=== PATIENT | female | born 1950 | race Caucasian/White ===

== ENCOUNTER → 2016-10-29 | Outpatient (REF) | payer OTHER | LOC: M LAB REF 12:24 | PROVIDERS: ATTEND Internal Medicine Medical Oncology | DX: C54.1 Malignant neoplasm of endometrium (principal) ==

== ENCOUNTER → 2016-12-27 | Outpatient (REF) | payer OTHER | LOC: M LAB REF 12:15 | PROVIDERS: ATTEND Internal Medicine Medical Oncology | DX: C54.1 Malignant neoplasm of endometrium (principal) ==

== ENCOUNTER → 2017-02-23 | Outpatient (CLI) | payer OTHER ==
--- NOTE | 2017-02-23 14:51 | REP ---
PET/CT: HISTORY: Restaging endometrial carcinoma. Lung metastasis status post left thoracotomy for metastasectomy. She is also status post chemotherapy. COMPARISONS: Comparison is made with PET/CT done at [facility] dated September 22, 2016. TECHNIQUE: 57 minutes following the intravenous injection of a 9.5 mCi dose of F-18 FDG, three-dimensional PET scintigraphy is acquired from the skull base to the proximal thighs. Triplanar noncontrast CT scanning is acquired through the same anatomic range for attenuation correction, and image registration with scan parameters optimized to minimize radiation exposure to the patient. PET scintigraphy and CT datasets were fused and displayed on a workstation with multiplanar and projection display capability. PET/CT FINDINGS: There is a post lung resection suture line in the left lower lobe and some left basilar fibroatelectatic changes are seen. There is no abnormal hypermetabolic uptake within the chest. There is no other nodular opacity in the lung parenchyma. No pleural effusion is seen. No hilar or mediastinal hypermetabolic uptake or evidence of adenopathy is seen. Head and neck soft tissues are unremarkable. In the abdomen and pelvis, there is normal hepatic, splenic, gastrointestinal, and genitourinary FDG accumulation. No abnormal hypermetabolic uptake is seen. IMPRESSION: Negative PET CT study. Postoperative changes left lower lobe. No abnormal hypermetabolic uptake is seen. Signed by Jay Liz MD 02/23/2017 03:50 P
== END ==
LOC: M PLARAD 07:36
PROVIDERS: ATTEND Internal Medicine Medical Oncology
DX: C54.1 Malignant neoplasm of endometrium (principal)
CPT/HCPCS: 78815; 86304; A9552

== ENCOUNTER → 2017-04-14 | Outpatient (CLI) | payer OTHER ==
--- NOTE | 2017-04-18 10:52 | DEXA ---
AP SPINE L1 - L4 1.419 1.8 3.4 LT FEMUR TOTAL 1.099 0.7 1.9 RT FEMUR TOTAL 1.108 0.8 2.0 TOTAL BODY TOTAL OTHER DUAL FEMUR FRAX* ASSESSMENT Risk factors: Aromatase inhibitor. 10 year probability of fracture Major osteoporotic fracture 6.3 % Hip fracture 0.2 % COMMENTS: Normal bone densitometry of the spine and hips. The decreased density of the spine does not represent a significant change. The decreased density of the left hip does not represent a significant change. The decreased density of the right hip does not represent significant change. The density of the spine has decreased 4.8% since the initial exam on 12/2012. The spine density has decreased 0.7% since the most recent exam on 04/2016. The density of the left hip has decreased 7.2% since the initial exam on 12/2012. The density of the left hip has decreased 1.1% since the most recent exam on 2015. The density of the right hip has decreased 7.0% since the initial exam on 2012. The density of the right hip has decreased 1.9% since the most recent exam on 2015. FOLLOW-UP: Recommendation for the next bone density exam: 5 years. DELFIND
== END ==
LOC: M WHC 10:23
PROVIDERS: ATTEND Internal Medicine Medical Oncology
DX: C54.1 Malignant neoplasm of endometrium (principal); Z79.899 Other long term (current) drug therapy

== ENCOUNTER → 2017-05-26 | Outpatient (REF) | payer OTHER | LOC: M LAB REF 08:46 | PROVIDERS: ATTEND Internal Medicine Medical Oncology | DX: C54.1 Malignant neoplasm of endometrium (principal) ==

== ENCOUNTER → 2017-12-27 | Outpatient (REF) | payer MEDICARE, OTHER ==
[2017-12-27 14:56] LABS: CA 125 6.2 U/ML (<30.2)
== END ==
LOC: M LAB REF 13:59
DX: C54.1 Malignant neoplasm of endometrium (principal)
CPT/HCPCS: 86304

== ENCOUNTER → 2018-04-12 | Outpatient (REF) | payer MEDICARE, OTHER ==
[2018-04-14 10:46] LABS: CA 125 7.6 U/ML (<30.2)
== END ==
LOC: M LAB REF 13:50
DX: Z51.81 Encounter for therapeutic drug level monitoring (principal); C78.01 Secondary malignant neoplasm of right lung; C78.02 Secondary malignant neoplasm of left lung; C54.1 Malignant neoplasm of endometrium; Z79.811 Long term (current) use of aromatase inhibitors
CPT/HCPCS: 86304

== ENCOUNTER → 2018-07-04 | Outpatient (CLI) | payer MEDICARE, OTHER | LOC: M PLARAD 08:23 | DX: C54.1 Malignant neoplasm of endometrium (principal) | CPT/HCPCS: 78815 ==

== ENCOUNTER → 2018-07-14 | Outpatient (CLI) | payer MEDICARE, OTHER ==
[~2018-07-14] MED LIST: GASTROGRAFIN SOLUTION 30ML (Q9963) As Ordered; ISOVUE-370 76% 100ML VIAL (Q9967) As Ordered
== END ==
LOC: M RAD 14:03
DX: C54.1 Malignant neoplasm of endometrium (principal); R91.1 Solitary pulmonary nodule
CPT/HCPCS: Q9963

== ENCOUNTER → 2018-07-25 | Outpatient (CLI) | payer MEDICARE, OTHER ==
[~2018-07-25] MED LIST changes: -GASTROGRAFIN SOLUTION 30ML (Q9963) As Ordered; -ISOVUE-370 76% 100ML VIAL (Q9967) As Ordered; +LIDOCAINE 1% MDV 20ML VIAL As Ordered
== END ==
LOC: M RADPRO 08:57
DX: C78.02 Secondary malignant neoplasm of left lung (principal); C54.1 Malignant neoplasm of endometrium; J93.83 Other pneumothorax
CPT/HCPCS: 32405

== ENCOUNTER → 2018-10-12 | Outpatient (CLI) | payer MEDICARE, OTHER ==
[~2018-10-12] MED LIST changes: +ANAS1TAB2 PO; +ASPI1TAB PO; +CALC1TAB30 PO; +LETR2.5T2 PO; -LIDOCAINE 1% MDV 20ML VIAL As Ordered; +PROHANCE 279.3MG/ML 5ML VIAL (A9576) As Ordered ONE
--- NOTE | 2018-10-12 14:34 | REP ---
MR BRAIN WITHOUT AND WITH CONTRAST: HISTORY: Endometrial carcinoma. CONTRAST: ProHance 7 mL. Several punctate areas of increased signal intensity on T2-weighted images are present in the subcortical white matter. This represents small vessel ischemic disease. There is no intraparenchymal hemorrhage, infarct, mass, or midline shift. The sella turcica is partially empty. There is no abnormal enhancement. The ventricular system is normal in appearance. There is no extracerebral collection. The sinuses are clear. IMPRESSION: Minimal small vessel ischemic disease. Electronically Signed by Jeevan Chung MD 10/12/2018 02:35 P
== END ==
LOC: M RAD 12:59
PROVIDERS: ATTEND Internal Medicine Medical Oncology
DX: C54.1 Malignant neoplasm of endometrium (principal); C78.02 Secondary malignant neoplasm of left lung; I73.9 Peripheral vascular disease, unspecified
CPT/HCPCS: 70553; A9576

== ENCOUNTER → 2018-10-17 | Outpatient (CLI) | payer MEDICARE, OTHER ==
[~2018-10-17] MED LIST changes: +GASTROGRAFIN SOLUTION 30ML (Q9963) As Ordered ONE; +ISOVUE-370 76% 100ML VIAL (Q9967) As Ordered ONE; -PROHANCE 279.3MG/ML 5ML VIAL (A9576) As Ordered ONE
--- NOTE | 2018-10-17 15:23 | REP ---
CT chest with IV contrast: History: Metastatic endometrial carcinoma. Post right lower lobe wedge resection. Surveillance. CT contrast dose: 100 mL of intravenous Isovue [address] study July 14, 2018. CT findings: The nodular focus identified on the last CAT scan in the right lower lobe has been resected. There is some post thoracotomy fibrosis and suture lines are visible. There is a suture line in the left lower lobe superior segment as well unchanged from the prior study. No new pulmonary nodule is appreciated. No pleural or pericardial effusion is seen. No hilar or mediastinal mass or adenopathy is observed. No adrenal abnormality is seen. The visualized upper abdominal structures are unremarkable. Bone window settings show no bony destructive lesion. Impression: Post thoracotomy and partial pneumonectomy changes are now noted bilaterally. No new pulmonary nodule or other evidence of active disease is seen in the chest. Electronically Signed by Jay Liz MD 10/17/2018 06:09 P
--- NOTE | 2018-10-17 15:25 | REP ---
CT abdomen and pelvis with IV and oral contrast: History: Metastatic endometrial carcinoma. Status post right lower lobe wedge resection. Comparison CT study July 14, 2018. CT contrast dose: 100 mL of intravenous Isovue [address] findings: The liver and spleen remain normal in size, homogeneous in texture. No adrenal lesion is seen. Pancreas is unremarkable. No abnormalities seen in the gallbladder. No upper abdominal or retroperitoneal mass or adenopathy is observed. The kidneys enhance symmetrically and remain morphologically intact. Small and large intestinal bowel loops are normal in the upper abdomen and pelvis. Uterus is surgically absent. No pelvic mass or adenopathy is appreciated. There is no evidence of ascites or other abnormal fluid collection. No abdominal wall defect is seen. Bone window settings show no bony destructive lesion. Impression: No active disease in the abdomen or pelvis. Electronically Signed by Jay Liz MD 10/17/2018 06:10 P
== END ==
LOC: M RAD 07:54
PROVIDERS: ATTEND Internal Medicine Medical Oncology
DX: C54.1 Malignant neoplasm of endometrium (principal); C78.02 Secondary malignant neoplasm of left lung; Z90.2 Acquired absence of lung [part of]
CPT/HCPCS: 71260; 74177; Q9963; Q9967

== ENCOUNTER → 2019-04-04 | Outpatient (CLI) | payer MEDICARE, OTHER ==
[~2019-04-04] MED LIST changes: -ASPI1TAB PO; +ASPI81TA26 PO; -GASTROGRAFIN SOLUTION 30ML (Q9963) As Ordered ONE; -ISOVUE-370 76% 100ML VIAL (Q9967) As Ordered ONE
== END ==
LOC: M WHC 09:30
PROVIDERS: ATTEND Nurse Practitioner Family
DX: C54.1 Malignant neoplasm of endometrium (principal); Z79.811 Long term (current) use of aromatase inhibitors

== ENCOUNTER → 2019-04-04 | Outpatient (CLI) | payer MEDICARE, OTHER ==
[~2019-04-04] MED LIST changes: +GASTROGRAFIN SOLUTION 30ML (Q9963) As Ordered ONE; +ISOVUE-370 76% 100ML VIAL (Q9967) As Ordered ONE
--- NOTE | 2019-04-04 14:47 | REP ---
Clinical: Endometrial carcinoma for restaging. Technique: Axial contrast enhanced images from the thoracic inlet to the up upper abdomen with coronal and sagittal re-formations using 100 ml Isovue 370 intravenous contrast material. Comparison: 10/17/2018. Findings: Lung sifuentes demonstrate mild/moderate chronic diffuse COPD/emphysematous changes as well as chronic bibasilar fibroatelectatic changes which are similar to prior examination. There is a new 1.4 cm nodule at the apex of the chronic fibroatelectatic changes in the right lower lobe (image 56). No further nodule, mass or consolidation. No effusion. No pneumothorax. Tracheobronchial tree is patent. Mediastinum demonstrates stable appearance to the thoracic aorta, pulmonary vasculature and heart/pericardium. No obvious adenopathy. Musculoskeletal structures without focal osseous abnormality. Impression: New 14 mm nodule at the apex of the chronic changes in the right lower lobe, and metastatic focus cannot be excluded. Electronically Signed by Wesly Winter MD 04/04/2019 02:38 P
--- NOTE | 2019-04-04 14:55 | REP ---
Clinical: Endometrial carcinoma for restaging. Technique: Axial contrast enhanced images from the lung bases to the pubic symphysis using oral (per protocol) and 100 ml Isovue 370 intravenous contrast material with coronal and sagittal re-formations as well as delayed images of the abdomen. Comparison: 10/17/2018. Findings: Liver, spleen, pancreas, gallbladder, bilateral adrenal glands and kidneys are normal. The enteric system including stomach, small, and large bowel is unremarkable and without obstruction or acute inflammatory process. Pelvis demonstrates normal bladder and evidence for prior hysterectomy. No pelvic fluid or mass/recurrent lesion. No obvious pelvic, retroperitoneal, or intraperitoneal adenopathy appreciated. No free air. Abdominal aorta without aneurysm or dissection. Musculoskeletal structures demonstrate age-related changes without focal osseous abnormality. Impression: Evidence of prior hysterectomy. No acute abdominopelvic pathology appreciated. No evidence for recurrence or metastatic disease. No ascites, focal inflammatory stranding, or adenopathy. Electronically Signed by Wesly Winter MD 04/04/2019 02:46 P
== END ==
LOC: M RAD 10:07
PROVIDERS: ATTEND Nurse Practitioner Family
DX: C54.1 Malignant neoplasm of endometrium (principal); R91.1 Solitary pulmonary nodule; Z90.710 Acquired absence of both cervix and uterus; Z79.811 Long term (current) use of aromatase inhibitors
CPT/HCPCS: 71260; 74177; 77080; Q9963; Q9967

== ENCOUNTER → 2019-04-11 | Outpatient (CLI) | payer MEDICARE, OTHER ==
[~2019-04-11] MED LIST changes: +AMLO2.5T3 PO; -GASTROGRAFIN SOLUTION 30ML (Q9963) As Ordered ONE; -ISOVUE-370 76% 100ML VIAL (Q9967) As Ordered ONE
--- NOTE | 2019-04-11 17:11 | REP ---
PET/CT: History: Restaging endometrial carcinoma. Status post wedge resection for oligometastatic pulmonary nodule right lower lobe August 19, 2018. Most recent CT study shows new right lower lobe pulmonary nodule. Comparisons: Comparison PET-CT studies are from July 04, 2018 and August 02, 2017. Recent CT study of the chest April 04, 2019 is reviewed. TECHNIQUE: 40 minutes following the intravenous injection of a 9.34 mCi dose of F-18 FDG, three-dimensional PET scintigraphy is acquired from the skull base to the proximal thighs. Triplanar noncontrast CT scanning is acquired through the same anatomic range for attenuation correction, and image registration with scan parameters optimized to minimize radiation exposure to the patient. PET scintigraphy and CT datasets were fused and displayed on a workstation with multiplanar and projection display capability. PET/CT Findings: The nodular density seen adjacent to the wedge resection site in the right lower lobe is mildly hypermetabolic today. Maximum standard uptake value 2.71. No other abnormal hypermetabolic uptake is seen within the chest. There is postoperative linear fibrosis in the lower lobes bilaterally. In the abdomen and pelvis there is no abnormal hypermetabolic uptake. No abnormal adrenal uptake is seen. No retroperitoneal mari or intrahepatic uptake is appreciated. The head and neck soft tissues are unremarkable. Impression: The solitary recurrent right lower lobe nodule is mildly hypermetabolic, maximum SUV value 2.71. Previously noted right lower lobe nodule had SUV value 2.35 on July 04, 2018. Electronically Signed by Jay Liz MD 04/11/2019 05:13 P
== END ==
LOC: M PLARAD 13:11
PROVIDERS: ATTEND Internal Medicine Medical Oncology
DX: C54.1 Malignant neoplasm of endometrium (principal)
CPT/HCPCS: 78815; A9552

== ENCOUNTER → 2019-05-31 | Outpatient (CLI) | payer MEDICARE, OTHER ==
[~2019-05-31] MED LIST changes: +NEUR300C PO
[2019-05-31 16:43] LABS: BASO # 0.1 10^3/uL (0.0-0.2); BASO % 0.9 % (0.0-1.0); EOS # 0.2 10^3/uL (0.0-0.50); HEMATOCRIT 42.1 % (36.0-47.0); LYMPH # 1.9 10^3/uL (1.5-4.5); LYMPH % 24.4 % (24.0-44.0); MEAN CORPUSCULAR HEMOGLOBIN 31.1 pg (27.0-33.0); MEAN CORPUSCULAR HGB CONC 33.3 g/dl (32.0-36.5); MEAN CORPUSCULAR VOLUME 93.6 fl (80.0-96.0); MONO # 0.7 10^3/uL (0.0-0.8); MONO % 9.2 % (0.0-5.0); NEUTROPHILS # 4.8 10^3/uL (1.8-7.7); NEUTROPHILS % 62.2 % (36.0-66.0); PLATELET COUNT, AUTOMATED 228 10^3/uL (150-450); WHITE BLOOD COUNT 7.6 10^3/uL (4.0-10.0)
[2019-05-31 16:44] LABS: ALBUMIN 3.4 GM/DL (3.2-5.2); ALT/SGPT 24 U/L (12-78); BILIRUBIN,TOTAL 0.4 MG/DL (0.2-1.0); BLOOD UREA NITROGEN 15 MG/DL (7-18); CALCIUM LEVEL 9.1 MG/DL (8.8-10.2); CARBON DIOXIDE LEVEL 31 MEQ/L (21-32); CHLORIDE LEVEL 106 MEQ/L (98-107); CREATININE FOR GFR 0.85 MG/DL (0.55-1.30); GLOMERULAR FILTRATION RATE > 60.0 (>45); GLUCOSE, FASTING 81 MG/DL (70-100); POTASSIUM SERUM 3.8 MEQ/L (3.5-5.1); SODIUM LEVEL 142 MEQ/L (136-145); TOTAL PROTEIN 6.6 GM/DL (6.4-8.2)
[2019-06-01 09:53] LABS: CA 125 8.5 U/ML (<30.2)
== END ==
LOC: M LRY 12:23
PROVIDERS: ATTEND Internal Medicine Medical Oncology
DX: C54.1 Malignant neoplasm of endometrium (principal); C79.82 Secondary malignant neoplasm of genital organs; C78.02 Secondary malignant neoplasm of left lung; Z79.899 Other long term (current) drug therapy

== ENCOUNTER → 2019-07-09 | Outpatient (CLI) | payer MEDICARE, OTHER | LOC: M LRY 12:14 | PROVIDERS: ATTEND Internal Medicine Medical Oncology | DX: C34.90 Malignant neoplasm of unspecified part of unspecified bronchus or lung (principal) ==

== ENCOUNTER → 2019-10-26 | Outpatient (CLI) | payer MEDICARE, OTHER ==
[~2019-10-26] MED LIST changes: +GASTROGRAFIN SOLUTION 30ML (Q9963) As Ordered ONE; +ISOVUE-370 76% 100ML VIAL (Q9967) As Ordered ONE
--- NOTE | 2019-10-27 07:14 | REP ---
CT CHEST WITH CONTRAST: 10/26/2019. COMPARISON: 04/04/2019, 10/17/2018. CLINICAL HISTORY: Restaging endometrial carcinoma. TECHNIQUE: Bolus 100 mL Isovue 370 scanning through the chest with coronal and sagittal reconstructions. FINDINGS: The superior segment right lower lobe nodule seen on the April study at 14 mm now measures 19 mm. There is some curvilinear fibrotic change or stranding to the paraspinal pleura. There is mild ill-defined ground-glass opacity in the medial segment right middle lobe subpleural midclavicular line anteriorly as a new finding, which must be viewed with some suspicion. On image 64 of series 204 is a 10.6 mm nodule. This is about 7 mm on the previous study. There are curvilinear fibrotic changes with some increased thickening that may be associated atelectasis or scarring or other process. No pleural effusion. No pleural-based masses. Heart size unchanged. There is no pericardial thickening or effusion. The aorta is without aneurysm or dissection. The main, right and left pulmonary artery and the lobar arteries visible are without filling defect to suggest pulmonary emboli. No mediastinal, hilar, axillary or supraclavicular adenopathy. The bone windows show the sternum, manubrium, clavicles, scapulae, humeral heads, ribs, thoracic vertebral bodies without sclerotic or lytic lesions. There are some degenerative marginal osteophytes in the spine and mild degenerative changes at the shoulders. Upper abdominal contents will be discussed in the CT abdomen report this same date. IMPRESSION: 1. Enlargement of the 14 mm new nodule described on the previous CT in April now 18 mm and there is a 10.6 mm nodule also in the right lower lobe below this, which has previously about 7 mm. Curvilinear fibrotic changes in both bases are again seen with some thickening of the fibrotic appearance versus adjacent atelectasis or other. There are three ill-defined ground-glass opacity subpleural midclavicular line at the medial segment right middle lobe that must be viewed with suspicion. 2. No mediastinal, hilar, or other adenopathy. Bony thorax without lytic or blastic lesion. Electronically Signed by Otoniel Cody MD 10/27/2019 07:48 P
--- NOTE | 2019-10-27 07:45 | REP ---
CT ABDOMEN PELVIS WITH IV AND ORAL CONTRAST: 10/26/2019. CLINICAL HISTORY: Endometrial carcinoma for restaging. COMPARISON: 07/19/2019, outside study, 04/04/2019. TECHNIQUE: Oral Gastrografin 10 mL in 290 mL flavored water for two doses per our bowel contrast protocol and bolus of 100 mL Isovue 370 scanning through the abdomen pelvis with coronal and sagittal reconstructions provided. FINDINGS: Right lower lobe nodule as seen on the CT chest and some chronic changes, please see the CT report. Some hazy ground-glass opacity medial segment right middle lobe subpleural region as a new finding. Heart size unchanged. There is no hiatal hernia. There is no hepatosplenomegaly, focal hepatic or splenic mass, intrahepatic biliary dilatation nor adjacent ascites. Gallbladder without calcified stone or mass. Adrenal glands are stable with thickened limbs but no nodular foci or mass. Pancreas without mass, ductal dilatation or adjacent inflammatory change/fluid. Small bowel loops contrast or fluid-filled but without dilatation or mass. No mesenteric infiltration. The aorta is without aneurysm or dissection. No periaortic, other retroperitoneal, mesenteric or intra-abdominal pathologic sized lymphadenopathy. Abdominal portion of the colon with stool and gas scattered but no colitis, diverticulitis or mass. Lung window review of all CT slices abdomen and pelvis shows no perforation or free air. I see no fluid in the peroneal gutters. Kidneys show symmetric enhancement with no stone, solid mass, cyst, hydronephrosis or perinephric fluid. Ureters show normal course to the bladder without filling defect or dilatation. Bone windows show marginal osteophytes lumbar lower thoracic spine but no compression deformity, blastic destructive lesions or posterior element findings of significance. Visualized ribs are also grossly intact. CT PELVIS: The bone windows show the sacrum, SI joints, iliac bones, acetabuli, ischia and hips without fracture or focal lesion. No lytic or blastic destructive lesions are seen. There are some minor degenerative changes of the hips. Bladder only partially filled and difficult to evaluate. No gross mass or stone. No ureteral dilatation or stone. There is a prior hysterectomy and some postsurgical changes in the pelvis which are stable. Stool and gas in the distal left colon, sigmoid and rectum are unremarkable without inflammatory changes. There is no definite pelvic lymphadenopathy. I see no ventral or inguinal hernia nor pathologic sized inguinal adenopathy. Small bowel loops in the deep pelvis are unremarkable. No inflammatory changes about the cecum. IMPRESSION: 1. There is no CT evidence for intra-abdominal or pelvic metastatic disease. The patient is status post hysterectomy and the vaginal cuff intact and some postsurgical changes in the deep pelvis but no mass, pelvic adenopathy, ascites, inflammatory changes in bowel loops or mass. 2. Degenerative changes in the spine and hips but no destructive bone lesion, lytic or blastic findings in the bones. No generalized ascites. 3. Solid organs upper abdomen unremarkable. Electronically Signed by Otoniel Cody MD 10/27/2019 07:49 P
== END ==
LOC: M RAD 15:25
PROVIDERS: ATTEND Internal Medicine Medical Oncology
DX: C54.1 Malignant neoplasm of endometrium (principal); C78.02 Secondary malignant neoplasm of left lung; M51.36 Other intervertebral disc degeneration, lumbar region; M51.34 Other intervertebral disc degeneration, thoracic region
CPT/HCPCS: 71260; 74177; Q9963; Q9967

== ENCOUNTER → 2019-10-31 | Outpatient (REF) | payer MEDICARE, OTHER, BC ==
[~2019-10-31] MED LIST changes: -GASTROGRAFIN SOLUTION 30ML (Q9963) As Ordered ONE; -ISOVUE-370 76% 100ML VIAL (Q9967) As Ordered ONE
== END ==
LOC: M LAB REF 09:39
PROVIDERS: ATTEND Dermatology
DX: L57.0 Actinic keratosis (principal)

== ENCOUNTER → 2020-01-15 | Outpatient (CLI) | payer MEDICARE, BC ==
[~2020-01-15] MED LIST changes: +GASTROGRAFIN SOLUTION 30ML (Q9963) As Ordered ONE; +ISOVUE-370 76% 100ML VIAL (Q9967) As Ordered ONE
--- NOTE | 2020-01-15 13:21 | REP ---
REASON: History of endometrial carcinoma. Latest prior for comparison 10/26/2019. Older priors also reviewed. CONTRAST: 100 mL Isovue 370. There is no significant change in the appearance of the mediastinum or pulmonary rissa. No mass or adenopathy has developed. There are no pleural or pericardial effusions. The imaged osseous structures are stable and intact. For description of the imaged upper abdomen see abdominal and pelvic CT report obtained the same day. Evaluation of the lung field shows a slight decrease in the size of the spiculated nodule in the right lower lobe previously measuring 1.9 cm, today 1.3 cm. The additional right lower lobe nodule previously measuring 1.1 cm is unchanged again meauring 1.1 cm. There are scattered particularly lung base asymmetric densities status quo. There are other chronic lung field changes also stable. No new abnormal nodules, masses, or opacities have developed. IMPRESSION: There is a spiculated right lower lobe nodule which has decreased in size from the prior exam as described above. In addition, there is a smaller, but stable nodule also in the right lower lobe as described above. There are stable appearing chronic lung field changes as described above. Electronically Signed by Santos Zuniga DO 01/15/2020 03:27 P
--- NOTE | 2020-01-15 13:25 | REP ---
REASON: Followup endometrial carcinoma. COMPARISON: Multiple, latest 10/26/2019. CONTRAST: 100 mL Isovue 370. The liver, gallbladder, spleen, pancreas, adrenal glands, and kidneys are essentially unchanged and again seen to be within normal limits. The abdominal aorta and paraaortic regions are unchanged and again seen to be within normal limits. No paraaortic adenopathy has developed. The bowel loops and their mesenteries are essentially unchanged and are within normal limits. No intra-abdominal mass or adenopathy has developed. There is no free fluid or free air. CT PELVIS: The bowel loops and their mesenteries are within normal limits. There is no free fluid or free air. No pelvic adenopathy has developed. Bone window technique throughout the examination shows the osseous structures to be stable and intact. IMPRESSION: No evidence of acute or recurrent disease. No significant change from the prior exam with findings as described above. Electronically Signed by Santos Zuniga DO 01/15/2020 03:27 P
== END ==
LOC: M RAD 10:36
PROVIDERS: ATTEND Internal Medicine Medical Oncology
DX: C54.1 Malignant neoplasm of endometrium (principal)
CPT/HCPCS: 71260; 74177; Q9963; Q9967

== ENCOUNTER → 2020-05-29 | Outpatient (CLI) | payer MEDICARE, BC ==
[~2020-05-29] MED LIST changes: -ISOVUE-370 76% 100ML VIAL (Q9967) As Ordered ONE; +ISOVUE-370 76% 100ML VIAL As Ordered ONE
--- NOTE | 2020-06-30 09:11 | REP ---
CT CHEST, ABDOMEN, AND PELVIS AFTER CONTRAST CT CONTRAST DOSE: 100 mL of Isovue-370. COMPARISON: Multiple, all reviewed; the latest 01/15/2020. REASON FOR EXAM: Endometrial cancer follow-up. CT CHEST: The mediastinal and pulmonary rissa are unchanged. No mass or adenopathy have developed. There are no pleural or pericardial effusions. Evaluation of the lung sifuentes again shows two nodules in the right lower lobe. The larger of the two nodules measures 1.4 cm and when the technical differences between the examinations are taken into consideration, it is possible that this nodule has enlarged by 1 mm or less. The smaller of the two nodules measures 1.2 cm and when the technical differences between the examinations are taken into consideration, this nodule may have increased in size by a millimeter. There are other lung field changes, which are chronic and have been stable. No new abnormal nodules, masses, or opacities have developed. The liver, gallbladder, spleen, pancreas, adrenal glands, and kidneys are again seen to be within normal limits. The abdominal aorta and paraaortic regions are unchanged and again seen to be within normal limits. The bowel loops and their mesenteries are again seen to be within normal limits. No mass or adenopathy has developed. There is no free fluid or free air. Bone window technique throughout the examination shows the osseous structures to be stable and intact. IMPRESSION: Possible minimal increase in the aforementioned right lung nodules as described above versus slice selection difference. This should be correlated clinically with close follow-up if clinically relevant. There is no evidence of acute intraabdominal or intrapelvic disease or significant change from prior exam. Other findings as described above. MTDD
== END ==
LOC: M RAD 08:58
PROVIDERS: ATTEND Internal Medicine Medical Oncology
DX: C54.1 Malignant neoplasm of endometrium (principal); R91.8 Other nonspecific abnormal finding of lung field
CPT/HCPCS: 71260; 74177; Q9963; Q9967

== ENCOUNTER → 2020-08-25 | Outpatient (CLI) | payer MEDICARE, BC ==
--- NOTE | 2020-08-25 13:46 | REP ---
INDICATION: ENDOMETRIAL CA. COMPARISON: 05/29/2020 TECHNIQUE: Axial contrast-enhanced images from the lung bases to the pubic symphysis using 100 cc Isovue 370 intravenous contrast material. Delayed images of the abdomen with coronal and sagittal reformations obtained. This CT examination was performed using the following dose reduction techniques: Automated exposure control, adjustment of mA and/or kv according to the patient's size, and the use of iterative reconstruction technique. FINDINGS: Liver, spleen, pancreas, gallbladder, bilateral adrenal glands and kidneys are normal. The enteric system including stomach, small, and large bowel appears normal. No evidence for obstruction or acute inflammatory process. Normal terminal ileum and appendix are identified in the right lower quadrant. Pelvis demonstrates normal bladder and evidence for prior hysterectomy. No ascites. No free air. No intraperitoneal or retroperitoneal adenopathy. Abdominal aorta and vasculature appear normal. Musculoskeletal structures are intact and without acute osseous abnormality. IMPRESSION: No acute abdominopelvic pathology appreciated. <Electronically signed by Wesly Winter > 08/25/20 [id number]
--- NOTE | 2020-08-25 13:53 | REP ---
INDICATION: ENDOMETRIAL CA COMPARISON: 05/29/2020 TECHNIQUE: Axial contrast enhanced images from the thoracic inlet to the upper abdomen with coronal and sagittal reformations using 100 ml Isovue 370 intravenous contrast material followed by CT of the abdomen and pelvis. This CT examination was performed using the following dose reduction techniques: Automated exposure control, adjustment of mA and/or kv according to the patient's size, and use of iterative reconstruction technique. FINDINGS: The lung sifuentes demonstrate chronic age-related interstitial changes along with scattered chronic bullae, scarring, and basilar fibroatelectatic changes. Rounded lesion with spiculated margins in the posterior right lower lobe currently measuring 18.4 mm maximal diameter and previously measuring 15.4 mm maximal diameter is identified along with 12 mm rounded lesion in the more inferior central right lower lobe which is unchanged in size. There is a new area of ill-defined opacity in the anterobasilar right middle lobe (image 72) which appears to have progressed from prior examination. No effusion. No pneumothorax. Mediastinum demonstrates stable atherosclerotic changes to the thoracic aorta and coronary arteries without aortic aneurysm or dissection. No pericardial effusion. No obvious significant adenopathy identified. Tracheobronchial tree is patent. Thyroid gland is relatively normal/stable. Surrounding musculoskeletal structures are intact and without acute osseous abnormality. IMPRESSION: 1. Two lesions in the right lower lobe are again identified with 1 remaining stable and 1 demonstrating slight increase in size concerning for active metastatic disease. 2. Small area of ill-defined infiltrate in the anterobasilar right middle lobe appears slightly increased from prior examination. <Electronically signed by Wesly Winter > 08/25/20 [id number]
== END ==
LOC: M RAD 10:34
PROVIDERS: ATTEND Internal Medicine Medical Oncology
DX: C54.1 Malignant neoplasm of endometrium (principal); J84.10 Pulmonary fibrosis, unspecified; R91.8 Other nonspecific abnormal finding of lung field; I70.0 Atherosclerosis of aorta; I25.10 Atherosclerotic heart disease of native coronary artery without angina pectoris
CPT/HCPCS: 71260; 74177; Q9963; Q9967

== ENCOUNTER → 2020-12-15 | Outpatient (CLI) | payer MEDICARE, BC ==
[~2020-12-15] MED LIST changes: +COVI30VI IM; -ISOVUE-370 76% 100ML VIAL As Ordered ONE
--- NOTE | 2020-12-15 18:39 | REP ---
INDICATION: ENDOMETRIAL CA. COMPARISON: Chest CT dated a 11 12/21/[address] dated 05/29/2020. TECHNIQUE: CT of the chest with IV contrast. FINDINGS: There are 2 known nodular lesions in the left lower lobe the superior most is on image 57 and measures 18 mm in diameter today. This measured 18 mm on 08/25/2020 and 15 mm on 05/29/2020. The inferior most lesion is on page 65 and measures 12 mm today. This is unchanged from both comparison studies. There are no other nodules or masses. There is chronic bibasilar milder parenchymal scarring, unchanged. There are no pleural effusions. There is no mediastinal, hilar or axillary lymph node enlargement. The thoracic aorta is unremarkable. Cardiac size is normal. There is no pericardial effusion. No lytic, blastic or destructive skeletal changes are identified. IMPRESSION: The known 2 right lower lobe lung nodules are as described. There is chronic mild bibasilar parenchymal scarring. <Electronically signed by Toby Abarca > 12/15/20 [id number]
--- NOTE | 2020-12-15 23:39 | REP ---
INDICATION: ENDOMETRIAL CA. COMPARISON: 08/25/2020 TECHNIQUE: Axial contrast-enhanced images from the lung bases to the pubic symphysis using 100 cc Isovue 370 intravenous contrast material. Delayed images of the abdomen obtained along with coronal and sagittal reformations. This CT examination was performed using the following dose reduction techniques: Automated exposure control, adjustment of mA and/or kv according to the patient's size, and the use of iterative reconstruction technique. FINDINGS: Liver, spleen, pancreas, gallbladder, bilateral adrenal glands and kidneys are normal. The enteric system including stomach, small, and large bowel appears normal. No evidence for obstruction or acute inflammatory process. Normal terminal ileum and cecum are identified in the right lower quadrant. Pelvis demonstrates normal bladder and evidence for prior hysterectomy. No ascites. No free air. No intraperitoneal or retroperitoneal adenopathy. No focal abdominopelvic mass or evidence for recurrence. Abdominal aorta and vasculature appear normal. Musculoskeletal structures are intact and without acute osseous abnormality. IMPRESSION: No acute abdominopelvic pathology appreciated. No evidence for abdominopelvic metastatic disease or recurrence. No ascites. Right lung base demonstrates 12 mm suspected metastasis focus along with bibasilar fibroatelectatic changes. <Electronically signed by Wesly Winter > 12/15/20 [id number]
== END ==
LOC: M RAD 16:01
PROVIDERS: ATTEND Internal Medicine Medical Oncology
DX: R93.5 Abnormal findings on diagnostic imaging of other abdominal regions, including retroperitoneum (principal); R91.8 Other nonspecific abnormal finding of lung field; C54.1 Malignant neoplasm of endometrium
CPT/HCPCS: 71260; 74177; Q9963

== ENCOUNTER → 2021-05-19 | Outpatient (CLI) | payer MEDICARE, BC ==
[~2021-05-19] MED LIST changes: +ISOVUE-370 76% 100ML VIAL As Ordered ONE
--- NOTE | 2021-05-19 14:16 | REP ---
INDICATION: ENDOMETRIAL CA F/U COMPARISON: Multiple the latest 12/15/2020 TECHNIQUE: Standard helical technique after the intravenous administration of 100 cc Isovue 370 FINDINGS: The mediastinum and pulmonary rissa are unchanged. No mass or adenopathy has developed. There no pleural or pericardial effusions. The imaged upper abdomen and imaged osseous structures are unchanged. Evaluation of the lung sifuentes shows an increase in size in the nodule in the right lower lobe which today measures 2.1 cm in the same dimension as measured on the prior exam by 1.6 cm. That dimension has not changed and is more anterior to posterior. Cabot artifact is seen adjacent to that nodule consistent with fiducial marker. The nodules also seen in the right lower lobe inferior to the aforementioned measures 1.3 by 1.4 cm maximally previously 1.2 by 1.1 cm measured in the same fashion on the prior exam. No new abnormal nodules, masses, or opacities have developed. IMPRESSION: There is evidence of a slight increase in the size of the known right lower lobe nodules as described above. <Electronically signed by Santos Zuniga > 05/19/21 [id number]
--- NOTE | 2021-05-19 16:11 | REP ---
INDICATION: ENDOMETRIAL CA F/U. COMPARISON: Multiple latest 12/15/2020 TECHNIQUE: Standard helical technique after the intravenous administration of 100 cc Isovue 370 and oral bowel preparatory contrast administration. FINDINGS: The liver, gallbladder, spleen, pancreas, adrenal glands, and kidneys are again seen to be within normal limits. The abdominal aorta and para-aortic regions are again seen to be within normal limits. There is no evidence of a mass or adenopathy. There is no free fluid or free air. There is no significant change in appearance of the bowel loops or the mesenteries. Evaluation of the osseous structures shows them to be stable and intact. IMPRESSION: No significant change from the prior exam. No evidence of acute disease. <Electronically signed by Santos Zuniga > 05/19/21 [id number]
== END ==
LOC: M RAD 11:18
PROVIDERS: ATTEND Internal Medicine Medical Oncology
DX: C54.1 Malignant neoplasm of endometrium (principal)
CPT/HCPCS: 71260; 74177; Q9963; Q9967

== ENCOUNTER → 2021-10-26 | Outpatient (CLI) | payer MEDICARE, BC ==
[~2021-10-26] MED LIST changes: +FISH1000 PO; -GASTROGRAFIN SOLUTION 30ML (Q9963) As Ordered ONE; -ISOVUE-370 76% 100ML VIAL As Ordered ONE
== END ==
LOC: M WHC 10:15
PROVIDERS: ATTEND Specialist
DX: Z53.9 Procedure and treatment not carried out, unspecified reason (principal); Z13.820 Encounter for screening for osteoporosis

== ENCOUNTER → 2021-11-05 | Outpatient (CLI) | payer MEDICARE, BC | LOC: M WHC 09:07 | PROVIDERS: ATTEND Specialist | DX: Z13.820 Encounter for screening for osteoporosis (principal); M85.88 Other specified disorders of bone density and structure, other site ==

== ENCOUNTER → 2022-03-10 | Outpatient (CLI) | payer MEDICARE, BC ==
[~2022-03-10] MED LIST changes: +GASTROGRAFIN SOLUTION 30ML (Q9963) As Ordered ONE; +ISOVUE-370 76% 100ML VIAL As Ordered ONE
== END ==
LOC: M RAD 07:28
PROVIDERS: ATTEND Internal Medicine Medical Oncology
DX: C54.1 Malignant neoplasm of endometrium (principal)
CPT/HCPCS: 71260; 74177; Q9963; Q9967

== ENCOUNTER → 2022-09-15 | Outpatient (CLI) | payer MEDICARE, BC ==
[~2022-09-15] MED LIST changes: -GASTROGRAFIN SOLUTION 30ML (Q9963) As Ordered ONE; +GASTROGRAFIN SOLUTION 30ML As Ordered ONE
== END ==
LOC: M RAD 11:44
PROVIDERS: ATTEND Nurse Practitioner
DX: C54.1 Malignant neoplasm of endometrium (principal)
CPT/HCPCS: 71260; 74177; Q9963; Q9967

== ENCOUNTER → 2023-01-13 | Outpatient (CLI) | payer MEDICARE, BC ==
[~2023-01-13] MED LIST changes: +EYE HEALTH PO; +ROSU5TAB5 PO
== END ==
LOC: M RAD 09:14
PROVIDERS: ATTEND Nurse Practitioner
DX: C54.1 Malignant neoplasm of endometrium (principal); R91.8 Other nonspecific abnormal finding of lung field
CPT/HCPCS: 71260; 74177; Q9963; Q9967

== ENCOUNTER → 2023-02-17 | Outpatient (CLI) | payer MEDICARE, BC ==
[~2023-02-17] MED LIST changes: -GASTROGRAFIN SOLUTION 30ML As Ordered ONE; -ISOVUE-370 76% 100ML VIAL As Ordered ONE
== END ==
LOC: M RAD 12:46
PROVIDERS: ATTEND Internal Medicine Medical Oncology
DX: R22.41 Localized swelling, mass and lump, right lower limb (principal)

== ENCOUNTER → 2023-04-25 | Outpatient (CLI) | payer MEDICARE, BC ==
[~2023-04-25] MED LIST changes: +GASTROGRAFIN SOLUTION 30ML ONE; +ISOVUE-370 76% 100ML VIAL ONE; +OCUV1CAP4 PO
== END ==
LOC: M PLAIMG 10:04
PROVIDERS: ATTEND Nurse Practitioner
DX: C54.1 Malignant neoplasm of endometrium (principal)
CPT/HCPCS: 71260; 74177; Q9963; Q9967